=== PATIENT | male | born 1985 | race Caucasian/White ===

== ENCOUNTER 2016-09-28 21:13 | Emergency (ER) | payer BC ==
[~2016-09-28] VITALS: Ht 170.2 cm; Wt 85.0 kg
[2016-09-28 21:15] VITALS: BP 163/95; PULSE 105; RESP 16; TEMP 99; O2SAT 98
--- NOTE | 2016-09-28 21:18 | PD ---
Physical Exam Date Seen by Provider: Sep 28, 2016 Time Seen by Provider: 21:17 Narrative 30 y/o male with 2 days of anterior lower jaw pain with gingival swelling. No fevers. No drainage. Pain 9/10. No drainage. No sore throat or difficulty swallowing. Vital Signs reviewed. Patient is Stable and awaiting Bed Placement. Data Data Last Documented VS Vital Signs Date Time Temp Pulse Resp B/P (MAP) Pulse Ox O2 Delivery O2 Flow Rate FiO2 09/28/16 21:15 99.0 105 16 163/95 (117) 98 MDM Medical Record Reviewed: Yes Supervised Visit with UMESH: Yes Condition: Stable Best Zuniga Sep 28, 2016 21:18
[2016-09-28] MEDS ORDERED: CLINDAMYCIN 150 MG CAP PO ONE (21:30)
[2016-09-28] MEDS ORDERED: KETOROLAC TROMETHAMINE 60 MG/2 ML (IM) VIAL IM ONE (21:30)
[2016-09-28] MEDS ORDERED: IBUP800T23 PO (21:32)
[2016-09-28] MEDS ORDERED: CLIN1CAP6 PO (21:32)
[2016-09-28] MEDS ORDERED: MAGICADU2 SWISH-SPIT (21:32)
[2016-09-28] MEDS ORDERED: PERI0.126 SWISH-SPIT (21:32)
--- NOTE | 2016-09-28 21:38 | PD ---
HPI Chief Complaint: Oral / Dental Pain or Problem Time Seen by Provider: 21:30 Travel History International Travel<30 days: No Contact w/Intl Traveler<30days: No Traveled to known affect area: No History of Present Illness HPI 30-year-old male presents for evaluation of dental pain. Symptom onset yesterday. The pain is localized to the lower mandibular teeth, primarily the premolars on the left side and the surrounding gumline, worse with chewing. He denies any facial trauma. he denies any fevers or chills. He has no other complaints at this time. [facility] Social History Tobacco Use: Yes Allergies-Medications (Allergen,Severity, Reaction): Coded Allergies: Penicillins (Verified Allergy, Unknown, 09/28/16) Reported Meds & Prescriptions Reported Meds & Active Scripts Active Ibuprofen 800 Mg Tab 800 Mg PO Q6HR PRN Peridex Liq (Chlorhexidine Gluconate (Mouth) Liq) 0.12% Soln 15 Ml SWISH-SPIT BID Magic Mouthwash Adult Liq (Multi-Ingredient Mouthwash/Gargle) 120 Ml Susp 10 Ml SWISH-SPIT ACHS Each 5mL contains: Nystatin 200,000units, Diphenhydramine 4.25mg, Viscous Lidocaine 10mg, Hirsch syrup 0.8 mL Clindamycin (Clindamycin HCl) 300 Mg Cap 300 Mg PO TID Review of Systems General / Constitutional: No: Fever, Chills HENT: Positive: Dental Difficulties, No: Gingival Bleeding Cardiovascular: No: Chest Pain or Discomfort Respiratory: No: Shortness of Breath Physical Exam Narrative GENERAL: Well-developed well-nourished male in no acute distress SKIN: Warm and dry. HEAD: Atraumatic. Normocephalic. EYES: Pupils equal and round. No scleral icterus. No injection or drainage. ENT: No nasal bleeding or discharge. Mucous membranes pink and moist. The lower frontal gum line is erythematous. There is generalized dental decay and most of the patient's teeth. He has specific tenderness to palpation to the left mandibular premolars and canine. No facial edema, no sublingual edema, no submandibular edema, no trismus. NECK: Trachea midline. No JVD. No lymphadenopathy or submandibular edema. CARDIOVASCULAR: Regular rate and rhythm. No murmur appreciated. RESPIRATORY: No accessory muscle use. Clear to auscultation. Breath sounds equal bilaterally. Data Data Last Documented VS Vital Signs Date Time Temp Pulse Resp B/P (MAP) Pulse Ox O2 Delivery O2 Flow Rate FiO2 09/28/16 21:15 99.0 105 16 163/95 (117) 98 Orders Orders Clindamycin (Cleocin) (09/28/16 21:30) Ketorolac Inj (Toradol Inj) (09/28/16 21:30) MDM Medical Decision Making Medical Screen Exam Complete: Yes Emergency Medical Condition: Yes Medical Record Reviewed: Yes Differential Diagnosis Dental caries, pulpitis, pericoronitis, periodontal abscess, gingivitis, necrotizing ulcerative gingivitis Narrative Course Physical examination is consistent with dental caries, gingivitis. The patient is allergic to penicillin. He will be discharged with clindamycin, Peridex, Magic mouthwash, ibuprofen. Recommend outpatient follow-up with a dentist for definitive therapy. Diagnosis Primary Impression: Gingivitis Additional Impression: Dental caries Referrals: Dentist Additional Instructions: Medications prescribed. Follow up with a dentist for definitive therapy. Consider ceasing tobacco use as this will exacerbate the problem. Return for any emergent medical conditions. Med/Other Pt SpecificInfo: Prescription(s) given Scripts Ibuprofen (Ibuprofen) 800 Mg Tab 800 MG PO Q6HR Y for PAIN, #40 TAB 0 Refills Prov: Dalia Cisneros DO 09/28/16 Chlorhexidine Gluconate (Mouth) Liq (Peridex Liq) 0.12% Soln 15 ML SWISH-SPIT BID, #473 ML 0 Refills Prov: Dalia Cisneros DO 09/28/16 Isdgkizn-Wprcxhklppblyqm-Glnizhvce Liq (Magic Mouthwash Adult Liq) 120 Ml Susp 10 ML SWISH-SPIT ACHS for Mouth sores, #120 ML 1 Refill Each 5mL contains: Nystatin 200,000units, Diphenhydramine 4.25mg, Viscous Lidocaine 10mg, Hirsch syrup 0.8 mL Prov: Dalia Cisneros DO 09/28/16 Clindamycin (Clindamycin) 300 Mg Cap 300 MG PO TID for Infection, #21 CAP 0 Refills Prov: Dalia Cisneros DO 09/28/16 Disposition: 01 DISCHARGE HOME Condition: Stable Levi Brambila Sep 28, 2016 21:38
== END 2016-09-28 21:52 | disposition home or self-care (01) ==
LOC: NEPK 21:13
DX: K05.10 Chronic gingivitis, plaque induced (principal); K02.9 Dental caries, unspecified; Z72.0 Tobacco use
CPT/HCPCS: 96372; 99284; J1885